=== PATIENT | male | born 2000 | race Caucasian/White ===

== ENCOUNTER 2021-10-06 00:38 | Emergency (ER) | payer SELFPAY ==
[~2021-10-06 00:38] MED LIST: NORCO 5-325 TA1 EACH PO; PERCOCET 7.5/321 TAB PO
[2021-10-06 01:21] LABS: BASOPHIL 0.7 % (0-2); EOSINOPHIL 0.8 % (0-5); HCT 42.4 % (42.0-52.0); HGB 14.8 g/dl (13.2-18.0); LYMPHOCYTE 11.6 % (15-48); MCH 30.6 pg (25.0-31.0); MCHC 34.9 g/dL (32.0-36.0); MCV 87.8 fL (78.0-100.0); MONOCYTE 8.3 % (0-12); MPV 11.2 fL (6.0-9.5); NEUTROPHIL 78.3 % (41-80); NRBC 0; PLT 174 K/uL (150-400); RBC 4.83 M/uL (4.70-6.00); RDW 11.6 % (11.5-14.0); WBC 11.6 K/uL (4.0-10.5)
[2021-10-06 01:47] LABS: ALBUMIN 4.7 g/dL (3.4-5.0); BILIRUBIN - TOTAL 0.4 mg/dL (0.2-1.0); BUN/CREAT RATIO (CALC) 14.6 RATIO; CREATININE 0.96 mg/dL (0.67-1.17); FT4 (FREE T4) 1.1 ng/dL (0.76-1.46); GLOBULIN (CALCULATION) 2.5 g/dL; POTASSIUM 3.6 mmol/L (3.5-5.1); TOTAL PROTEIN 7.2 g/dL (6.4-8.2)
[2021-10-06 01:58] LABS: CORONAVIRUS 2019 SARS-COV-2 NEGATIVE (NEGATIVE); INFLUENZA A NAA NEGATIVE (NEGATIVE)
[2021-10-06 02:06] LABS: BILIRUBIN NEGATIVE (NEGATIVE); BLOOD NEGATIVE Ery/uL (NEGATIVE); CLARITY CLEAR (CLEAR); COLOR YELLOW (YELLOW); GLUCOSE (U) NORMAL (NORMAL); LEUKOCYTES NEGATIVE Leu/uL (NEGATIVE); NITRITE NEGATIVE (NEGATIVE); PROTEIN NEGATIVE (NEGATIVE); UROBILINOGEN 0.2 mg/dL (0.2-1.0)
[2021-10-06 02:08] LABS: AMPHETAMINES NEGATIVE (NEGATIVE); BARBITURATES NEGATIVE (NEGATIVE); ECSTASY (MDMA) NEGATIVE (NEGATIVE); MARIJUANA (THC) POSITIVE (NEGATIVE); METHADONE NEGATIVE (NEGATIVE); OPIATES NEGATIVE (NEGATIVE); OXYCODONE NEGATIVE (NEGATIVE)
[2021-10-06] MEDS ORDERED: NORCO 5-325 TA1 EACH PO (02:28)
[2021-10-06] MEDS ORDERED: NAPROXEN500 MG PO (02:28)
[2021-10-06] MEDS ORDERED: AMOX TR-K CLV1 EAC4 PO (02:31)
== END 2021-10-06 04:28 | disposition home or self-care (01) ==
LOC: FER 00:38
PROVIDERS: Internal Medicine
DX: R10.32 Left lower quadrant pain (principal); R94.5 Abnormal results of liver function studies; R59.0 Localized enlarged lymph nodes; F17.210 Nicotine dependence, cigarettes, uncomplicated; Z20.822 Contact with and (suspected) exposure to COVID-19
CPT/HCPCS: 36415; 70491; 80053; 80305; 81003; 83690; 83735; 84439; 84443; 84484; 85025; 93005; J1170; J7120; Q9967; U0002